=== PATIENT | female | born 1960 | race Caucasian/White ===

== ENCOUNTER 2017-12-07 11:22 | Inpatient (IN) | payer MEDICARE, MEDICAID ==
[~2017-12-07] VITALS: Ht 154.9 cm; Wt 92.7 kg
[2017-12-07] MEDS ORDERED: NALOXONE HCL 0.4 MG/ML VIAL IV ONE (11:30)
[2017-12-07] MEDS ORDERED: SODIUM CHLORIDE 0.9% 1,000 ML IVB ONE (11:30)
[2017-12-07 13:33] LABS: Basophils # (auto) 0 uL; Basophils % (auto) 0.4 % (0.0-2.0); Eosinophils # (auto) 0.1 uL; Eosinophils % (auto) 1.7 % (0.0-7.0); Hematocrit 36.6 % (36.0-46.0); Hemoglobin 11.8 g/dL (12.2-16.2); Lymphocytes # (auto) 1.9 uL; Lymphocytes % (auto) 28.9 % (10.0-50.0); Mean Corpuscular Hemoglobin 31.4 pg (28.0-32.0); Mean Corpuscular Hgb Conc. 32.1 g/dL (32.0-36.0); Monocytes # (auto) 0.4 uL; Monocytes % (auto) 6.2 % (0.0-12.0); Neutrophils % (auto) 62.8 % (37.0-80.0); Nucleated Red Blood Cells % 0.1 %; Platelet Count (auto) 112 10^3/uL (140-450); Red Blood Cells 3.74 10^6/uL (4.0-5.20); Red Cell Distribution Width 15.3 % (11.8-14.3); White Blood Cell 6.4 10^3/uL (4.4-10.8)
[2017-12-07 13:44] LABS: INR 0.99 (0.9-1.15); Partial Thromboplastin Time 26.8 sec (23.78-33.04); Prothrombin Time 10.6 sec (9.27-12.13)
[2017-12-07 13:48] LABS: Alanine Aminotransferase 25 U/L (13-56); Albumin 3.2 g/dL (3.4-5.0); Anion Gap 9 (5-15); Aspartate Aminotransferase 21 U/L (15-37); BUN/Creatinine Ratio 16.9; Blood Alcohol < 3.0 mg/dL (0-5); Blood Urea Nitrogen 13 mg/dL (7-18); Calcium 7.9 mg/dL (8.5-10.1); Carbon Dioxide 25 mmol/L (21-32); Chloride 106 mmol/L (98-107); GFR African American 99 mL/min; GFR Non-African American 82 mL/min; Glucose 293 mg/dL (74-106); Magnesium 1.8 mg/dL (1.6-2.6); Potassium 4.2 mmol/L (3.5-5.1); Sodium 140 mmol/L (136-145)
[2017-12-07 13:53] LABS: Alkaline Phosphatase 121 U/L (45-117); Bilirubin, Total 0.3 mg/dL (0.2-1.0); Total Protein 7.5 g/dL (6.4-8.2)
[2017-12-07] MEDS ORDERED: KETOROLAC TROMETH 30 MG/ML 1ML VIAL IV ONE (14:15)
[2017-12-07] MEDS ORDERED: SODIUM CHLORIDE 0.9% 1,000 ML IV SCH (14:38)
[2017-12-07] MEDS ORDERED: PANTOPRAZOLE 40 MG/10 ML VIAL IV ONE (14:45)
[2017-12-07] MEDS ORDERED: DEXTROSE (50%) 50ML SYRG IV PRN (14:45)
[2017-12-07] MEDS ORDERED: ACETAMINOPHEN 500 MG TAB PO PRN (14:45)
[2017-12-07] MEDS ORDERED: LACTULOSE 20Gm/30ML SOLN PO PRN (14:45)
[2017-12-07] MEDS ORDERED: LABETALOL HCL 5 MG/ML ML 20ML VIAL IV PRN (14:45)
[2017-12-07] MEDS ORDERED: NITROGLYCERIN 0.4 MG SL TAB SL PRN (14:45)
[2017-12-07] MEDS ORDERED: MORPHINE SULFATE 4 MG/ML SYR/VIAL IV PRN ×2 (14:45→15:45)
[2017-12-07] MEDS ORDERED: ASPirin 81 mg TAB PO SCH (14:53)
[2017-12-07] MEDS: SODIUM CHLORIDE 0.9% 1,000 ML IV SCH (15:40)
[2017-12-07] MEDS: FAMOTIDINE (10MG/ML) 2ML VL IV SCH (15:45)
[2017-12-07 16:00] LABS: Amylase 18 U/L (25-115); Lipase 233 U/L (73-393)
[2017-12-07 16:20] VITALS: BP 137/69
[2017-12-07] MEDS ORDERED: POM (16:49)
[2017-12-07] MEDS ORDERED: RANO500T2 PO (16:49)
[2017-12-07] MEDS ORDERED: INSLISPI SC (16:49)
[2017-12-07] MEDS ORDERED: METH-562 PO (16:49)
[2017-12-07] MEDS ORDERED: INSUINJ18 SC (16:49)
[2017-12-07] MEDS ORDERED: ALPR-229 PO (16:49)
[2017-12-07] MEDS ORDERED: CETI10TA80 PO (16:49)
[2017-12-07] MEDS ORDERED: DIPH2.5T73 PO (16:49)
[2017-12-07] MEDS ORDERED: ACYC400T GT (16:49)
[2017-12-07] MEDS ORDERED: BUTACAP35 PO (16:49)
[2017-12-07] MEDS ORDERED: APIX2.5T OR (16:49)
[2017-12-07] MEDS ORDERED: ONDA-143 PO (16:49)
[2017-12-07] MEDS ORDERED: DOCU-94 PO (16:49)
[2017-12-07] MEDS ORDERED: [UNRECOGNIZED DRUG - CODE] IV (16:49)
[2017-12-07] MEDS ORDERED: NITR0.4S29 SL (16:49)
[2017-12-07] MEDS ORDERED: BUP100T GT (16:49)
[2017-12-07] MEDS ORDERED: HYDR2TAB58 PO (16:49)
[2017-12-07] MEDS ORDERED: MONT10TA34 OR (16:49)
[2017-12-07] MEDS: ACCU-CHEK COMFORT CURVE STRIP VI SCH ×2 (18:00→20:15)
[2017-12-07] MEDS: HYDROmorphone HCL 2 MG/ML VL IV PRN ×2 (18:17→22:42)
[2017-12-07] MEDS: InsuLIN REG 1unit/0.01ml Soln (100units/ml) SC SCH ×2 (18:18→20:18)
[2017-12-07 22:00] VITALS: BP 133/72
[2017-12-08] MEDS: ACCU-CHEK COMFORT CURVE STRIP VI SCH ×7 (00:27→23:50)
[2017-12-08] MEDS: InsuLIN REG 1unit/0.01ml Soln (100units/ml) SC SCH ×7 (00:30→23:51)
[2017-12-08 00:37] LABS: Urine Bacteria NONE SEEN /hpf (None Seen); Urine Blood Negative /uL (Negative); Urine Budding Yeast MODERATE /hpf (None Seen); Urine Specific Gravity 1.022 (1.001-1.035); Urine WBC 37 /hpf (0 - 5)
[2017-12-08 00:52] LABS: Amphetamine Screen, Urine NEGATIVE (NEGATIVE); Barbiturate Scree,Urine POSITIVE (NEGATIVE); Benzodiazephine Screen, Urine POSITIVE (NEGATIVE); Cannabinoid Screen, Urine NEGATIVE (NEGATIVE); Cocaine Screen, Urine NEGATIVE (NEGATIVE); Opiate Scree,Urine POSITIVE (NEGATIVE); Phencyclidine Screen, Urine NEGATIVE (NEGATIVE)
[2017-12-08] MEDS: SODIUM CHLORIDE 0.9% 1,000 ML IV SCH ×3 (01:33→21:33)
[2017-12-08] MEDS: FAMOTIDINE (10MG/ML) 2ML VL IV SCH ×2 (04:12→16:05)
[2017-12-08] MEDS: HYDROmorphone HCL 2 MG/ML VL IV PRN ×2 (04:14→08:24)
[2017-12-08 05:00] VITALS: BP 136/83
[2017-12-08 08:00] VITALS: BP 138/88
[2017-12-08] MEDS: ONDANSETRON HCL 4 MG/2 ML VIAL IV PRN ×2 (08:28→14:56)
[2017-12-08 09:00] VITALS: BP 138/88
[2017-12-08] MEDS ORDERED: PANTOPRAZOLE 40 MG/10 ML VIAL IV SCH (10:00)
[2017-12-08] MEDS ORDERED: ENOXAPARIN SOD 40 MG/0.4 ML SYRINGE SC SCH (10:00)
[2017-12-08] MEDS ORDERED: CEFTRIAXONE SODIUM 2 GM in D5W 5% 50 ML IV ONE (11:45)
[2017-12-08] MEDS ORDERED: LORazepam 2MG/ML-1ML VIAL IV ONE (12:00)
[2017-12-08 13:00] VITALS: BP 151/99
[2017-12-08] MEDS: APIXABAN 2.5 MG TAB PO SCH ×2 (13:10→21:07)
[2017-12-08] MEDS: ALPRAZolam 0.5 MG TAB PO SCH ×2 (14:19→21:07)
[2017-12-08] MEDS ORDERED: EZ-GAS II GRANULES (RADIOLOGY USE) PO ONE (15:05)
[2017-12-08] MEDS ORDERED: GASTROGRAFIN 120 ML SOL ONE (15:05)
[2017-12-08 16:55] VITALS: BP 116/71
[2017-12-08] MEDS: DIPHENOXYLATE W/ATROPINE 2.5 MG TAB PO PRN (18:24)
[2017-12-08] MEDS: METOCLOPRAMIDE HCL 5MG/ml INJ 2ml VIAL IV SCH (21:06)
[2017-12-08] MEDS: PANTOPRAZOLE 40 MG/10 ML VIAL IV SCH (21:06)
[2017-12-08 21:35] VITALS: BP 153/91
[2017-12-09] MEDS: ACCU-CHEK COMFORT CURVE STRIP VI SCH ×5 (04:10→20:30)
[2017-12-09] MEDS: FAMOTIDINE (10MG/ML) 2ML VL IV SCH ×2 (04:10→16:32)
[2017-12-09] MEDS: InsuLIN REG 1unit/0.01ml Soln (100units/ml) SC SCH ×5 (04:11→20:34)
[2017-12-09 05:12] VITALS: BP 136/85
[2017-12-09] MEDS: METOCLOPRAMIDE HCL 5MG/ml INJ 2ml VIAL IV SCH ×3 (06:07→21:39)
[2017-12-09] MEDS: ALPRAZolam 0.5 MG TAB PO SCH ×3 (06:07→21:39)
[2017-12-09 09:00] VITALS: BP 145/75
[2017-12-09] MEDS: PANTOPRAZOLE 40 MG/10 ML VIAL IV SCH ×2 (09:40→21:38)
[2017-12-09] MEDS: cefTRIAXone 1GM/50ML D5W 50 ML IV SCH (09:41)
[2017-12-09] MEDS: buPROPion HCL 100 MG TAB PO SCH (09:41)
[2017-12-09] MEDS: APIXABAN 2.5 MG TAB PO SCH ×2 (09:41→21:39)
[2017-12-09] MEDS: DIPHENOXYLATE W/ATROPINE 2.5 MG TAB PO PRN ×2 (09:42→21:41)
[2017-12-09] MEDS: SODIUM CHLORIDE 0.9% 1,000 ML IV SCH ×2 (09:43→17:33)
[2017-12-09 12:00] VITALS: BP 136/73
[2017-12-09 17:00] VITALS: BP 116/60
[2017-12-09] MEDS: HYDROmorphone HCL 2 MG TAB PO PRN ×2 (17:31→21:39)
[2017-12-09 22:05] VITALS: BP 142/71
[2017-12-10] MEDS: ACCU-CHEK COMFORT CURVE STRIP VI SCH ×6 (00:14→20:07)
[2017-12-10] MEDS: InsuLIN REG 1unit/0.01ml Soln (100units/ml) SC SCH ×6 (00:20→20:17)
[2017-12-10] MEDS: HYDROmorphone HCL 2 MG TAB PO PRN ×3 (02:49→20:17)
[2017-12-10] MEDS: SODIUM CHLORIDE 0.9% 1,000 ML IV SCH ×3 (03:33→23:40)
[2017-12-10] MEDS: FAMOTIDINE (10MG/ML) 2ML VL IV SCH ×2 (03:41→16:01)
[2017-12-10 05:18] VITALS: BP 148/84
[2017-12-10] MEDS: METOCLOPRAMIDE HCL 5MG/ml INJ 2ml VIAL IV SCH ×3 (05:57→22:03)
[2017-12-10] MEDS: ALPRAZolam 0.5 MG TAB PO SCH ×3 (05:57→22:03)
[2017-12-10 08:00] VITALS: BP 140/72
[2017-12-10 09:00] VITALS: BP 140/72
[2017-12-10] MEDS: cefTRIAXone 1GM/50ML D5W 50 ML IV SCH (09:31)
[2017-12-10] MEDS: buPROPion HCL 100 MG TAB PO SCH (09:31)
[2017-12-10] MEDS: APIXABAN 2.5 MG TAB PO SCH ×2 (09:31→22:03)
[2017-12-10] MEDS: PANTOPRAZOLE 40 MG/10 ML VIAL IV SCH ×2 (09:31→22:03)
[2017-12-10] MEDS ORDERED: LEVO50TA7 PO (10:01)
[2017-12-10] MEDS: ONDANSETRON HCL 4 MG/2 ML VIAL IV PRN (10:14)
[2017-12-10] MEDS ORDERED: LEVOTHYROXINE SODIUM 25 MCG TAB PO ONE (10:15)
[2017-12-10 13:00] VITALS: BP 153/89
[2017-12-10 17:00] VITALS: BP 114/64
[2017-12-10 21:51] VITALS: BP 138/75
[2017-12-10] MEDS: DIPHENOXYLATE W/ATROPINE 2.5 MG TAB PO PRN (22:09)
[2017-12-11] VITALS (7 sets, daily range): BP systolic 117–154; BP diastolic 70–89
[2017-12-11] MEDS: ACCU-CHEK COMFORT CURVE STRIP VI SCH ×5 (00:29→15:32)
[2017-12-11] MEDS: InsuLIN REG 1unit/0.01ml Soln (100units/ml) SC SCH ×5 (00:38→16:00)
[2017-12-11] MEDS: HYDROmorphone HCL 2 MG TAB PO PRN ×4 (00:44→15:32)
[2017-12-11] MEDS: FAMOTIDINE (10MG/ML) 2ML VL IV SCH ×2 (03:53→15:31)
[2017-12-11] MEDS: METOCLOPRAMIDE HCL 5MG/ml INJ 2ml VIAL IV SCH ×2 (05:52→13:52)
[2017-12-11] MEDS: ALPRAZolam 0.5 MG TAB PO SCH ×2 (05:52→13:52)
[2017-12-11] MEDS ORDERED: LEVOTHYROXINE SODIUM 25 MCG TAB PO SCH (07:00)
[2017-12-11] MEDS: cefTRIAXone 1GM/50ML D5W 50 ML IV SCH (09:06)
[2017-12-11] MEDS: PANTOPRAZOLE 40 MG/10 ML VIAL IV SCH (09:06)
[2017-12-11] MEDS: APIXABAN 2.5 MG TAB PO SCH (09:07)
[2017-12-11] MEDS: buPROPion HCL 100 MG TAB PO SCH (09:07)
[2017-12-11] MEDS: SODIUM CHLORIDE 0.9% 1,000 ML IV SCH (09:08)
== END 2017-12-11 22:00 | disposition home health service (06) | DRG 312 ==
LOC: EDBD 11:22 → ER 11:22 → TELE 11:23 → TELE-CENTR 15:40
PROVIDERS: ADMIT Internal Medicine; ATTEND Internal Medicine
DX: R55 Syncope and collapse (principal); K57.32 Diverticulitis of large intestine without perforation or abscess without bleeding; N39.0 Urinary tract infection, site not specified; I69.354 Hemiplegia and hemiparesis following cerebral infarction affecting left non-dominant side; E11.65 Type 2 diabetes mellitus with hyperglycemia; G89.4 Chronic pain syndrome; I25.10 Atherosclerotic heart disease of native coronary artery without angina pectoris; I50.9 Heart failure, unspecified; I08.0 Rheumatic disorders of both mitral and aortic valves; K42.9 Umbilical hernia without obstruction or gangrene; J44.9 Chronic obstructive pulmonary disease, unspecified; E88.01 Alpha-1-antitrypsin deficiency; G43.909 Migraine, unspecified, not intractable, without status migrainosus; Z90.49 Acquired absence of other specified parts of digestive tract; Z95.5 Presence of coronary angioplasty implant and graft; Z88.8 Allergy status to other drugs, medicaments and biological substances; Z88.6 Allergy status to analgesic agent; Z88.1 Allergy status to other antibiotic agents; Z88.3 Allergy status to other anti-infective agents; Z91.040 Latex allergy status; M54.9 Dorsalgia, unspecified
CPT/HCPCS: 36415; 70450; 70551; 71045; 74176; 74247; 80053; 80307; 80320; 81001; 82150; 82270; 82550; 82607; 82962; 83036; 83605; 83690; 83735; 84443; 84484; 85025; 85610; 85652; 85730; 87040; 87081; 87086; 93005; 93306; 93886; 94761; 96361; 96374; 96375; A6257; C9113; G0378; J0696; J1815; J2405; J3490; J7060

== ENCOUNTER 2018-02-02 12:42 | Inpatient (IN) | payer MEDICARE, MEDICAID ==
[~2018-02-02] VITALS: Ht 154.9 cm; Wt 95.0 kg
[~2018-02-02 12:42] MED LIST: ACYC400T GT; ALPR-229 PO; APIX2.5T OR; BUP100T GT; BUTACAP35 PO; CETI10TA80 PO; DIPH2.5T73 PO; DOCU-94 PO; HYDR2TAB58 PO; INSLISPI SC; INSUINJ18 SC; LEVO50TA7 PO; METH-562 PO; MONT10TA34 OR; NITR0.4S29 SL; ONDA-143 PO; POM; RANO500T2 PO; [UNRECOGNIZED DRUG - CODE] IV
[2018-02-02] MEDS ORDERED: SODIUM CHLORIDE 0.9% 500 ML IVB ONE (12:53)
[2018-02-02] MEDS ORDERED: MORPHINE SULFATE 4 MG/ML SYR/VIAL IV ONE (13:00)
[2018-02-02] MEDS ORDERED: ONDANSETRON HCL 4 MG/2 ML VIAL IV ONE (13:00)
[2018-02-02 17:44] LABS: Urine Bacteria NONE SEEN /hpf (None Seen); Urine Blood 1+ /uL (Negative); Urine Budding Yeast MODERATE /hpf (None Seen); Urine Specific Gravity 1.033 (1.001-1.035); Urine WBC 52 /hpf (0 - 5)
[2018-02-02] MEDS ORDERED: HYDROmorphone HCL 2 MG/ML VL IV ONE (18:00)
[2018-02-02 18:07] LABS: Basophils # (auto) 0 uL; Basophils % (auto) 0.5 % (0.0-2.0); Eosinophils # (auto) 0.5 uL; Eosinophils % (auto) 6.2 % (0.0-7.0); Hematocrit 38.1 % (36.0-46.0); Hemoglobin 12.5 g/dL (12.2-16.2); Lymphocytes # (auto) 3.1 uL; Lymphocytes % (auto) 41.9 % (10.0-50.0); Mean Corpuscular Hgb Conc. 32.6 g/dL (32.0-36.0); Monocytes # (auto) 0.5 uL; Monocytes % (auto) 6.4 % (0.0-12.0); Neutrophils # (auto) 3.4 uL; Nucleated Red Blood Cells % 0.1 %; Platelet Count (auto) 122 10^3/uL (140-450); Red Blood Cells 3.89 10^6/uL (4.0-5.20); Red Cell Distribution Width 13.8 % (11.8-14.3); White Blood Cell 7.5 10^3/uL (4.4-10.8)
[2018-02-02 18:21] LABS: Albumin 3.6 g/dL (3.4-5.0); Calcium 9.1 mg/dL (8.5-10.1); Magnesium 1.7 mg/dL (1.6-2.6); Potassium 4.1 mmol/L (3.5-5.1)
[2018-02-02 18:24] LABS: BUN/Creatinine Ratio 17.2; Bilirubin, Total 0.5 mg/dL (0.2-1.0); Total Protein 8.4 g/dL (6.4-8.2)
[2018-02-02] MEDS ORDERED: HYDROmorphone HCL 2 MG/ML VL IV PRN (18:45)
[2018-02-02] MEDS ORDERED: NITROGLYCERIN 0.4 MG SL TAB SL PRN (18:45)
[2018-02-02] MEDS ORDERED: ACETAMINOPHEN 500 MG TAB PO PRN (18:45)
[2018-02-02] MEDS ORDERED: MORPHINE SULFATE 4 MG/ML SYR/VIAL IV PRN (18:45)
[2018-02-02] MEDS ORDERED: cefTRIAXone 1GM/50ML D5W 50 ML IV ONE (18:45)
[2018-02-02] MEDS ORDERED: DEXTROSE (50%) 50ML SYRG IV PRN (18:45)
[2018-02-02] MEDS: SODIUM CHLORIDE 0.9% 1,000 ML IV SCH (19:15)
[2018-02-02] MEDS: InsuLIN REG 1unit/0.01ml Soln (100units/ml) SC SCH ×2 (19:44→23:42)
[2018-02-02] MEDS: ACCU-CHEK COMFORT CURVE STRIP VI SCH ×2 (19:53→23:42)
[2018-02-02] MEDS ORDERED: RANOLAZINE ER 500 MG TAB PO SCH (20:00)
[2018-02-02 20:35] VITALS: BP 140/78
[2018-02-02 22:00] VITALS: BP 140/78
[2018-02-02] MEDS ORDERED: DIPHENOXYLATE W/ATROPINE 2.5 MG TAB PO SCH (22:00)
[2018-02-02] MEDS: buPROPion HCL 100 MG TAB PO SCH (22:00)
[2018-02-02] MEDS ORDERED: APIXABAN 2.5 MG TAB PO ONE (22:30)
[2018-02-02] MEDS ORDERED: RANOLAZINE ER 500 MG TAB PO ONE (22:30)
[2018-02-02] MEDS: DOCUSATE SOD 100 MG CAP PO SCH (23:20)
[2018-02-02] MEDS: MONTELUKAST SODIUM 10 MG TAB PO SCH (23:20)
[2018-02-02] MEDS: HYDROmorphone HCL 2 MG TAB PO PRN (23:23)
[2018-02-03] MEDS: ALPRAZolam 0.5 MG TAB PO PRN ×3 (00:44→23:57)
[2018-02-03] MEDS: ONDANSETRON HCL 4 MG/2 ML VIAL IV PRN ×2 (00:45→15:35)
[2018-02-03] MEDS ORDERED: BUPR200T2 PO (02:01)
[2018-02-03] MEDS ORDERED: LEVO-28 PO (02:01)
[2018-02-03] MEDS ORDERED: DIGETAB OR (02:01)
[2018-02-03] MEDS ORDERED: LEVO88TA4 PO (02:01)
[2018-02-03] MEDS ORDERED: NITR1SPR TL (02:01)
[2018-02-03] MEDS ORDERED: MAGN400C2 PO (02:01)
[2018-02-03] MEDS ORDERED: METH-532 PO (02:01)
[2018-02-03] MEDS ORDERED: DIPH2.5T16 PO (02:01)
[2018-02-03] MEDS ORDERED: ALPR2TAB2 PO (02:01)
[2018-02-03] MEDS ORDERED: APIX2.5T OR (02:01)
[2018-02-03] MEDS ORDERED: MONT10TA34 PO (02:01)
[2018-02-03] MEDS ORDERED: [UNRECOGNIZED DRUG - CODE] EX (02:01)
[2018-02-03] MEDS: ACCU-CHEK COMFORT CURVE STRIP VI SCH ×5 (03:35→20:26)
[2018-02-03] MEDS: InsuLIN REG 1unit/0.01ml Soln (100units/ml) SC SCH ×5 (03:35→20:21)
[2018-02-03] MEDS: SODIUM CHLORIDE 0.9% 1,000 ML IV SCH ×2 (04:39→14:49)
[2018-02-03 04:56] VITALS: BP 112/67
[2018-02-03] MEDS: LEVOTHYROXINE SODIUM 25 MCG TAB PO SCH (06:32)
[2018-02-03] MEDS: cefTRIAXone 1GM/50ML D5W 50 ML IV SCH (08:42)
[2018-02-03 09:00] VITALS: BP 104/68
[2018-02-03] MEDS: buPROPion HCL 100 MG TAB PO SCH ×2 (10:00→15:35)
[2018-02-03] MEDS: APIXABAN 2.5 MG TAB PO SCH ×2 (10:31→22:10)
[2018-02-03] MEDS: PANTOPRAZOLE 40 MG TAB PO SCH (10:31)
[2018-02-03] MEDS: DOCUSATE SOD 100 MG CAP PO SCH ×2 (10:31→22:09)
[2018-02-03] MEDS ORDERED: LACTULOSE 20Gm/30ML SOLN PO PRN (11:15)
[2018-02-03] MEDS: HYDROmorphone HCL 2 MG TAB PO PRN ×2 (11:35→22:10)
[2018-02-03 13:00] VITALS: BP 106/61
[2018-02-03 16:29] VITALS: BP 107/62
[2018-02-03 22:00] VITALS: BP 117/68
[2018-02-03] MEDS: MONTELUKAST SODIUM 10 MG TAB PO SCH (22:10)
[2018-02-04] MEDS: ACCU-CHEK COMFORT CURVE STRIP VI SCH ×5 (00:13→16:00)
[2018-02-04] MEDS: InsuLIN REG 1unit/0.01ml Soln (100units/ml) SC SCH ×5 (00:13→16:00)
[2018-02-04] MEDS: SODIUM CHLORIDE 0.9% 1,000 ML IV SCH ×2 (00:39→10:55)
[2018-02-04 05:00] VITALS: BP 136/76
[2018-02-04] MEDS: LEVOTHYROXINE SODIUM 25 MCG TAB PO SCH (06:21)
[2018-02-04] MEDS: ONDANSETRON HCL 4 MG/2 ML VIAL IV PRN (06:22)
[2018-02-04] MEDS: ALPRAZolam 0.5 MG TAB PO PRN (06:51)
[2018-02-04 07:13] LABS: Calcium 7.5 mg/dL (8.5-10.1); Potassium 3.6 mmol/L (3.5-5.1)
[2018-02-04 07:16] LABS: BUN/Creatinine Ratio 7.5
[2018-02-04 09:00] VITALS: BP 130/69
[2018-02-04] MEDS: HYDROmorphone HCL 2 MG TAB PO PRN (09:00)
[2018-02-04] MEDS: DOCUSATE SOD 100 MG CAP PO SCH (10:53)
[2018-02-04] MEDS: cefTRIAXone 1GM/50ML D5W 50 ML IV SCH (10:53)
[2018-02-04] MEDS: PANTOPRAZOLE 40 MG TAB PO SCH (10:54)
[2018-02-04] MEDS: buPROPion HCL 100 MG TAB PO SCH (10:54)
[2018-02-04] MEDS: APIXABAN 2.5 MG TAB PO SCH (10:54)
[2018-02-04 13:00] VITALS: BP 107/55
[2018-02-04] MEDS ORDERED: LEVO500T21 PO (15:27)
[2018-02-04 17:00] VITALS: BP 110/60
== END 2018-02-04 19:30 | disposition home or self-care (01) | DRG 690 ==
LOC: EDBD 12:42 → ER 12:42 → TELE 18:39 → TELE-WESTW 20:45
PROVIDERS: ADMIT Internal Medicine; ATTEND Internal Medicine
DX: N39.0 Urinary tract infection, site not specified (principal); E87.1 Hypo-osmolality and hyponatremia; I69.354 Hemiplegia and hemiparesis following cerebral infarction affecting left non-dominant side; K50.90 Crohn's disease, unspecified, without complications; I11.0 Hypertensive heart disease with heart failure; I50.9 Heart failure, unspecified; K57.30 Diverticulosis of large intestine without perforation or abscess without bleeding; R10.9 Unspecified abdominal pain; Z68.38 Body mass index [BMI] 38.0-38.9, adult; E66.01 Morbid (severe) obesity due to excess calories; J44.9 Chronic obstructive pulmonary disease, unspecified; K59.00 Constipation, unspecified; E11.65 Type 2 diabetes mellitus with hyperglycemia; E78.5 Hyperlipidemia, unspecified; N28.1 Cyst of kidney, acquired; I49.3 Ventricular premature depolarization; G89.29 Other chronic pain; E78.00 Pure hypercholesterolemia, unspecified; I25.10 Atherosclerotic heart disease of native coronary artery without angina pectoris; Z86.718 Personal history of other venous thrombosis and embolism; Z71.3 Dietary counseling and surveillance; Z90.49 Acquired absence of other specified parts of digestive tract; Z90.710 Acquired absence of both cervix and uterus; Z95.5 Presence of coronary angioplasty implant and graft; Z88.8 Allergy status to other drugs, medicaments and biological substances; Z88.6 Allergy status to analgesic agent; Z88.1 Allergy status to other antibiotic agents; Z88.3 Allergy status to other anti-infective agents; Z91.040 Latex allergy status; Z79.4 Long term (current) use of insulin; Z79.899 Other long term (current) drug therapy; Z79.01 Long term (current) use of anticoagulants; Z90.89 Acquired absence of other organs; Z83.79 Family history of other diseases of the digestive system
CPT/HCPCS: 36415; 74176; 80048; 80053; 81001; 82150; 82962; 83036; 83690; 83735; 85025; 93005; 94761; 96361; 96365; 96375; G0378; J0696; J1815; J2405

== ENCOUNTER 2018-06-26 16:40 | Emergency (ER) | payer MEDICARE, MEDICAID ==
[~2018-06-26] VITALS: Ht 157.5 cm; Wt 68.0 kg
[~2018-06-26 16:40] MED LIST changes: -ACYC400T GT; -ALPR-229 PO; +ALPR2TAB2 PO; -BUP100T GT; +BUPR200T2 PO; +DIGETAB OR; +DIPH2.5T16 PO; -DIPH2.5T73 PO; +LEVO500T21 PO; +MAGN400C2 PO; +METH-532 PO; -METH-562 PO; -MONT10TA34 OR; +MONT10TA34 PO; -NITR0.4S29 SL; +NITR1SPR TL; -POM; +[UNRECOGNIZED DRUG - CODE] EX; -[UNRECOGNIZED DRUG - CODE] IV
[2018-06-26 21:55] LABS: Basophils # (auto) 0 uL; Basophils % (auto) 0.4 % (0.0-2.0); Eosinophils # (auto) 0.2 uL; Eosinophils % (auto) 1.7 % (0.0-7.0); Hematocrit 35.6 % (36.0-46.0); Hemoglobin 11.8 g/dL (12.2-16.2); Lymphocytes # (auto) 3.2 uL; Lymphocytes % (auto) 32.5 % (10.0-50.0); Mean Corpuscular Hemoglobin 32.8 pg (28.0-32.0); Mean Corpuscular Hgb Conc. 33.2 g/dL (32.0-36.0); Mean Corpuscular Volume 98.9 fL (80.0-100.0); Monocytes # (auto) 0.4 uL; Monocytes % (auto) 3.9 % (0.0-12.0); Neutrophils % (auto) 61.5 % (37.0-80.0); Nucleated Red Blood Cells % 0.1 %; Platelet Count (auto) 123 10^3/uL (140-450); Red Cell Distribution Width 14.2 % (11.8-14.3); White Blood Cell 9.8 10^3/uL (4.4-10.8)
[2018-06-26 22:15] LABS: Alanine Aminotransferase 29 U/L (13-56); Albumin 3.6 g/dL (3.4-5.0); Anion Gap 10 (5-15); Aspartate Aminotransferase 23 U/L (15-37); BUN/Creatinine Ratio 17.3; Blood Urea Nitrogen 14 mg/dL (7-18); Calcium 8.6 mg/dL (8.5-10.1); Carbon Dioxide 25 mmol/L (21-32); Chloride 103 mmol/L (98-107); GFR African American 93 mL/min; GFR Non-African American 77 mL/min; Glucose 159 mg/dL (74-106); Potassium 3.8 mmol/L (3.5-5.1); Sodium 138 mmol/L (136-145)
[2018-06-26 22:20] LABS: Alkaline Phosphatase 98 U/L (45-117); Bilirubin, Total 0.3 mg/dL (0.2-1.0); Total Protein 8.1 g/dL (6.4-8.2)
[2018-06-26 23:59] LABS: INR 0.97 (0.9-1.15); Partial Thromboplastin Time 26.8 sec (23.78-33.04); Prothrombin Time 10.4 sec (9.27-12.13)
[2018-06-27 02:45] VITALS: BP 127/74
[2018-06-27 02:55] LABS: Urine Bacteria MOD /hpf (None Seen); Urine Blood Negative /uL (Negative); Urine Budding Yeast OCCASIONAL /hpf (None Seen); Urine Hyaline Cast FEW /lpf (0 - 2); Urine Specific Gravity 1.019 (1.001-1.035); Urine WBC 53 /hpf (0 - 5)
== END 2018-06-27 03:49 | disposition home or self-care (01) ==
LOC: EDBD 16:40 → EDUNIT# 16:40 → ER 16:51
DX: R55 Syncope and collapse (principal); N39.0 Urinary tract infection, site not specified; G89.4 Chronic pain syndrome; R51 Headache; I50.9 Heart failure, unspecified; E11.9 Type 2 diabetes mellitus without complications; E78.5 Hyperlipidemia, unspecified; I25.10 Atherosclerotic heart disease of native coronary artery without angina pectoris; Z86.73 Personal history of transient ischemic attack (TIA), and cerebral infarction without residual deficits; Z90.49 Acquired absence of other specified parts of digestive tract; Z90.710 Acquired absence of both cervix and uterus
CPT/HCPCS: 36415; 36600; 70450; 71046; 80053; 81001; 82805; 83880; 84484; 85025; 85610; 85730; 87086; 87804; 93005

== ENCOUNTER 2018-09-18 12:31 | Emergency (ER) | payer MEDICARE, MEDICAID ==
[~2018-09-18] VITALS: Ht 162.6 cm; Wt 99.8 kg
[~2018-09-18 12:31] MED LIST changes: -BUTACAP35 PO; +BUTAPT PO; +FLUO0.0127 EACH EAR
[2018-09-18] MEDS ORDERED: NITROGLYCERIN 0.4 MG SL TAB SL ONE (13:00)
[2018-09-18] MEDS ORDERED: ASPirin 81 mg TAB PO ONE (13:00)
[2018-09-18 13:52] LABS: Basophils # (auto) 0 uL; Basophils % (auto) 0.3 % (0.0-2.0); Eosinophils # (auto) 0.1 uL; Eosinophils % (auto) 1.4 % (0.0-7.0); Hematocrit 35.8 % (36.0-46.0); Hemoglobin 11.5 g/dL (12.2-16.2); Lymphocytes # (auto) 2.8 uL; Lymphocytes % (auto) 31.8 % (10.0-50.0); Mean Corpuscular Hgb Conc. 32.3 g/dL (32.0-36.0); Mean Corpuscular Volume 99.3 fL (80.0-100.0); Monocytes # (auto) 0.5 uL; Monocytes % (auto) 5.4 % (0.0-12.0); Neutrophils # (auto) 5.3 uL; Neutrophils % (auto) 61.1 % (37.0-80.0); Platelet Count (auto) 123 10^3/uL (140-450); Red Cell Distribution Width 13.6 % (11.8-14.3); White Blood Cell 8.7 10^3/uL (4.4-10.8)
[2018-09-18 14:16] LABS: Urine Bacteria NONE SEEN /hpf (None Seen); Urine Blood Negative /uL (Negative); Urine Budding Yeast OCCASIONAL /hpf (None Seen); Urine Specific Gravity 1.037 (1.001-1.035); Urine WBC 3 /hpf (0 - 5)
[2018-09-18 14:18] LABS: Albumin 3.7 g/dL (3.4-5.0); Anion Gap 11 (5-15); Blood Urea Nitrogen 14 mg/dL (7-18); Calcium 8.6 mg/dL (8.5-10.1); Carbon Dioxide 25 mmol/L (21-32); Chloride 104 mmol/L (98-107); Potassium 3.9 mmol/L (3.5-5.1); Sodium 140 mmol/L (136-145)
[2018-09-18 14:23] LABS: Alanine Aminotransferase 24 U/L (13-56); Alkaline Phosphatase 98 U/L (45-117); Aspartate Aminotransferase 19 U/L (15-37); BUN/Creatinine Ratio 13.1; Bilirubin, Total 0.3 mg/dL (0.2-1.0); GFR African American 68 mL/min; GFR Non-African American 56 mL/min; Total Protein 8.1 g/dL (6.4-8.2)
[2018-09-18 14:31] LABS: Glucose 473 mg/dL (74-106)
[2018-09-18] MEDS ORDERED: InsuLIN REG 1unit/0.01ml Soln (100units/ml) IV ONE ×2 (14:45→16:15)
[2018-09-18] MEDS ORDERED: diphenhdrAMINE HCL 25 MG CAP PO ONE (14:45)
[2018-09-18 15:46] VITALS: BP 108/65
[2018-09-18] MEDS ORDERED: SODIUM CHLORIDE 0.9% 1,000 ML IV ONE ×2 (16:01)
[2018-09-18] MEDS ORDERED: HYDROmorphone HCL 2 MG/ML VL IV ONE (16:15)
[2018-09-18] MEDS ORDERED: traMADol HCL 50 MG TAB PO ONE (16:15)
== END 2018-09-18 17:42 | disposition home or self-care (01) ==
LOC: ER 12:31 → EDBD 12:31 → ER 17:42
DX: R07.89 Other chest pain (principal); J44.1 Chronic obstructive pulmonary disease with (acute) exacerbation; J18.9 Pneumonia, unspecified organism; J96.10 Chronic respiratory failure, unspecified whether with hypoxia or hypercapnia; E88.01 Alpha-1-antitrypsin deficiency; R42 Dizziness and giddiness; E11.65 Type 2 diabetes mellitus with hyperglycemia; E66.9 Obesity, unspecified; Z86.711 Personal history of pulmonary embolism; Z68.37 Body mass index [BMI] 37.0-37.9, adult; Z90.710 Acquired absence of both cervix and uterus; Z88.1 Allergy status to other antibiotic agents; Z88.2 Allergy status to sulfonamides; Z88.6 Allergy status to analgesic agent; Z88.8 Allergy status to other drugs, medicaments and biological substances; Z79.2 Long term (current) use of antibiotics; Z79.4 Long term (current) use of insulin; Z79.899 Other long term (current) drug therapy
CPT/HCPCS: 36415; 71045; 80053; 81001; 82962; 84484; 85025; 93005; 96361; 96374; 96375; 99284; J1170; J1815; J7030